=== PATIENT | female | born 1975 | race African-American/Black ===

== ENCOUNTER 2017-06-15 21:45 | Emergency (ER) | payer BC ==
[~2017-06-15] VITALS: Ht 167.6 cm; Wt 95.3 kg
[2017-06-15 22:58] LABS: Urine Bilirubin Negative (Negative); Urine Blood Negative /uL (Negative); Urine Color Yellow (Yellow); Urine Glucose Normal (Normal); Urine Ketone Negative (Negative); Urine Mucus FEW (None Seen); Urine Nitrite Negative (Negative); Urine RBC <1 /hpf (0 - 4); Urine Squamous Epithelial Cell FEW /hpf (<5)
[2017-06-15 23:01] LABS: Basophils # (auto) 0.1 uL; CONDITION Y; DEFINITIVE SEE PRINTOUT; Eosinophils # (auto) 0.1 uL; Eosinophils % (auto) 2.1 % (0.0-7.0); Hematocrit 33.9 % (36.0-46.0); Lymphocytes # (auto) 1.6 uL; Lymphocytes % (auto) 23.7 % (10.0-50.0); Mean Corpuscular Hemoglobin 25.5 pg (28.0-32.0); Mean Corpuscular Hgb Conc. 32.5 g/dL (32.0-36.0); Mean Corpuscular Volume 78.6 fL (80.0-100.0); Mean Platelet Volume 10.5 fL (7.4-10.4); Monocytes # (auto) 0.6 uL; Monocytes % (auto) 9.4 % (0.0-12.0); Neutrophils # (auto) 4.2 uL; Neutrophils % (auto) 63.8 % (37.0-80.0); Platelet Count (auto) 295 10^3/uL (140-450); Red Cell Distribution Width 17.8 % (11.6-16.0); White Blood Cell 6.6 10^3/uL (4.4-10.8)
[2017-06-15 23:10] LABS: Albumin 3.4 g/dL (3.4-5.0); Anion Gap 9 (5-15); Aspartate Aminotransferase 18 U/L (15-37); BUN/Creatinine Ratio 10.5; Blood Urea Nitrogen 10 mg/dL (7-18); Calcium 8.7 mg/dL (8.5-10.1); Carbon Dioxide 23 mmol/L (21-32); Chloride 110 mmol/L (98-107); GFR African American 84 mL/min; GFR Non-African American 69 mL/min; Glucose 86 mg/dL (74-106); Magnesium 2.3 mg/dL (1.6-2.6); Potassium 3.6 mmol/L (3.5-5.1); Sodium 142 mmol/L (136-145)
[2017-06-15 23:15] LABS: Alkaline Phosphatase 83 U/L (45-117); Bilirubin, Total 0.3 mg/dL (0.2-1.0); Total Protein 8.2 g/dL (6.4-8.2)
[2017-06-16 08:36] VITALS: BP 122/73
== END 2017-06-16 08:51 | disposition home or self-care (01) ==
LOC: ER 21:49
DX: J20.9 Acute bronchitis, unspecified (principal); R07.89 Other chest pain; R19.7 Diarrhea, unspecified
CPT/HCPCS: 36415; 71020; 80053; 81001; 83735; 84484; 85025; 93005